=== PATIENT | female | born 1945 ===

== ENCOUNTER 2024-11-01 08:19 | Inpatient (IN) | payer OTHER ==
[2024-10-27 14:28] VITALS: BP 120/68
[~2024-11-01] VITALS: Ht 160 cm; Wt 81.6 kg
[~2024-11-01 08:19] MED LIST: GRALISE600 MG PO; IRBESARTAN-HCT1 EAC1 PO; NORVASC5 MG PO
[2024-11-01] MEDS ORDERED: METRONIDAZOLE/SODIUM CHLORIDE 500 MG/100 ML PIGGYBACK IV ONE (12:45)
[2024-11-01] MEDS ORDERED: CEFTRIAXONE SODIUM 2,000 MG VIAL IV ONE (12:45)
[2024-11-01] MEDS ORDERED: CHLORHEXIDINE GLUCONATE 120 ML BOTTLE TOP ONE (12:45)
[2024-11-01] MEDS ORDERED: BUPIVACAINE HCL 30 ML VIAL IJ ONE (12:45)
[2024-11-01] MEDS ORDERED: LIDOCAINE HCL 1%/EPINEPHRINE 20ML VIAL IJ ONE (12:45)
[2024-11-01] MEDS ORDERED: 0.9 % SODIUM CHLORIDE 1,000 ML IV SCH (14:45)
[2024-11-01] MEDS ORDERED: MORPHINE SULFATE 4 MG/ML CARTRIDGE IV PRN (14:45)
[2024-11-01] MEDS ORDERED: ONDANSETRON HCL 2 MG/ML VIAL IV PRN (14:45)
[2024-11-01] MEDS ORDERED: OxyCODONE HCL 5 MG TABLET (ROXICODONE) PO PRN (14:45)
[2024-11-01] MEDS ORDERED: DEXTROSE 50 % IN WATER 0.5 G/ML DISP.SYRIN IV PRN (14:45)
[2024-11-01] MEDS ORDERED: MORPHINE SULFATE 4 MG/ML VIAL IV ONE ×2 (15:25→15:55)
[2024-11-01 16:17] LABS: HEMATOCRIT 42.3 % (36.0-45.00); HEMOGLOBIN 13.6 g/dL (12.0-15.00); MEAN CELL VOLUME 90.9 fL (80.00-100.00); MEAN CORPUSCULAR HEMOGLOBIN 29.2 pg (27.00-32.0); MEAN CORPUSCULAR HGB CONC 32.1 g/dl (32.0-36.0); PLATELET COUNT 210 K/uL (150-450); RED BLOOD COUNT 4.66 M/uL (4.00-6.00); RED CELL DISTRIBUTION WIDTH 15.5 % (11.5-14.5)
[2024-11-01 16:49] LABS: ALBUMIN 3.4 gm/dL (3.4-5.0); CREATININE SERUM 1.18 mg/dL (0.55-1.02); GFR 44.3; MAGNESIUM 1.7 mg/dL (1.8-2.4); PHOSPHOROUS 3.1 mg/dL (2.5-4.9); POTASSIUM 3.66 mEq/L (3.5-5.1)
[2024-11-01] MEDS ORDERED: HYOSCYAMINE SULFATE 0.125 MG TAB.SUBL SL SCH (17:00)
[2024-11-01] MEDS ORDERED: GABAPENTIN 300 MG CAPSULE PO SCH (17:00)
[2024-11-01] MEDS ORDERED: ACETAMINOPHEN 500 MG GEL..CAP PO SCH (20:00)
[2024-11-01] MEDS ORDERED: FAMOTIDINE/PF 20 MG/2 ML VIAL IV PUSH SCH (21:00)
[2024-11-01] MEDS ORDERED: CELECOXIB 200 MG CAPSULE PO SCH (21:00)
[2024-11-02] VITALS: BP 105/56; O2SAT 85
[2024-11-02 01:46] LABS: ABG PH 7.466 (7.35-7.45); ABG pCO2 38.5 mmHg (35-45); BASE EXCESS 3.4 mmol/l; BICARBONATE 27.2 mmol/l (23-25); SaO2 87.1 %; Tco2 28.4 mmol/l
[2024-11-02 02:08] LABS: ABG PO2 48.7 mmHg (80-100); allen test SATISFACTORY; puncture site RADIAL LEFT
[2024-11-02 02:09] LABS: o2 32 %
[2024-11-02 06:51] LABS: HEMATOCRIT 38.8 % (36.0-45.00); HEMOGLOBIN 13.1 g/dL (12.0-15.00); MEAN CORPUSCULAR HEMOGLOBIN 29.8 pg (27.00-32.0); MEAN CORPUSCULAR HGB CONC 33.8 g/dl (32.0-36.0); PLATELET COUNT 161 K/uL (150-450); RED BLOOD COUNT 4.41 M/uL (4.00-6.00); RED CELL DISTRIBUTION WIDTH 15.5 % (11.5-14.5)
[2024-11-02 07:34] LABS: CALCIUM 8.7 mg/dL (8.5-10.1); CREATININE SERUM 1.07 mg/dL (0.55-1.02); GFR 49.59; MAGNESIUM 1.8 mg/dL (1.8-2.4); PHOSPHOROUS 3.2 mg/dL (2.5-4.9); POTASSIUM 3.7 mEq/L (3.5-5.1)
[2024-11-02 08:00] VITALS: BP 125/77; O2SAT 88
[2024-11-02] MEDS ORDERED: IRBESARTAN 300 MG TABLET PO SCH (09:00)
[2024-11-02] MEDS ORDERED: AMLODIPINE BESYLATE 5 MG TABLET PO SCH (09:00)
[2024-11-02] MEDS ORDERED: LEVALBUTEROL HCL 1.25 MG/3 ML SOLUTION IH SCH (09:04)
[2024-11-02] MEDS ORDERED: FUROsemide 40 MG/4 ML VIAL IV NR (09:30)
[2024-11-02 09:59] LABS: HEMATOCRIT 40.5 % (36.0-45.00); HEMOGLOBIN 13.1 g/dL (12.0-15.00); MEAN CELL VOLUME 89.3 fL (80.00-100.00); MEAN CORPUSCULAR HEMOGLOBIN 28.9 pg (27.00-32.0); MEAN CORPUSCULAR HGB CONC 32.4 g/dl (32.0-36.0); PLATELET COUNT 172 K/uL (150-450); RED BLOOD COUNT 4.54 M/uL (4.00-6.00); RED CELL DISTRIBUTION WIDTH 15.7 % (11.5-14.5)
[2024-11-02] MEDS ORDERED: 0.9 % SODIUM CHLORIDE 1,000 ML IV SCH (10:00)
[2024-11-02 13:04] VITALS: O2SAT 95
[2024-11-02 15:44] VITALS: BP 102/60; O2SAT 94
[2024-11-02] MEDS ORDERED: ENOXAPARIN SODIUM 40 MG/0.4 ML SYRINGE SUBCUTANEO SCH (17:00)
[2024-11-02 20:44] VITALS: O2SAT 93
[2024-11-02] MEDS ORDERED: ENOXAPARIN SODIUM 80 MG/0.8 ML SYRINGE SUBCUTANEO SCH (21:00)
[2024-11-03] VITALS (10 sets, daily range): BP systolic 131–151; BP diastolic 79–98; O2SAT 90–96
[2024-11-03 06:50] LABS: HEMOGLOBIN 12.4 g/dL (12.0-15.00); MEAN CELL VOLUME 88.1 fL (80.00-100.00); MEAN CORPUSCULAR HEMOGLOBIN 29.5 pg (27.00-32.0); MEAN CORPUSCULAR HGB CONC 33.5 g/dl (32.0-36.0); PLATELET COUNT 173 K/uL (150-450); RED CELL DISTRIBUTION WIDTH 15.7 % (11.5-14.5)
[2024-11-03 07:03] LABS: CALCIUM 8.4 mg/dL (8.5-10.1); CREATININE SERUM 1.1 mg/dL (0.55-1.02); GFR 48.04; POTASSIUM 3.24 mEq/L (3.5-5.1)
[2024-11-03] MEDS ORDERED: ENOXAPARIN SODIUM 40 MG/0.4 ML SYRINGE SUBCUTANEO SCH (09:00)
[2024-11-03] MEDS ORDERED: POTASSIUM CHLORIDE IN WATER 100 ML IV NR (12:00)
[2024-11-03] MEDS ORDERED: ENALAPRILAT DIHYDRATE 1.25 MG/ML VIAL IV PRN (16:45)
[2024-11-04] VITALS (8 sets, daily range): BP systolic 138–149; BP diastolic 85–88; O2SAT 90–100
[2024-11-05] VITALS (8 sets, daily range): BP systolic 122–150; BP diastolic 75–83; O2SAT 90–100
[2024-11-05 14:36] LABS: ABG PH 7.425 (7.35-7.45); ABG pCO2 46.4 mmHg (35-45); BASE EXCESS 4.5 mmol/l; BICARBONATE 29.8 mmol/l (23-25); SaO2 90.4 %; Tco2 31.2 mmol/l
[2024-11-05 14:56] LABS: allen test SATISFACTORY; o2 21 %; puncture site RADIAL RIGHT
[2024-11-05] MEDS ORDERED: APIXABAN 5 MG TABLET PO SCH (17:00)
[2024-11-06] VITALS (11 sets, daily range): BP systolic 127–147; BP diastolic 75–83; O2SAT 90–100
[2024-11-06 07:54] LABS: HEMATOCRIT 38.2 % (36.0-45.00); HEMOGLOBIN 12.4 g/dL (12.0-15.00); MEAN CELL VOLUME 89.4 fL (80.00-100.00); MEAN CORPUSCULAR HGB CONC 32.5 g/dl (32.0-36.0); PLATELET COUNT 262 K/uL (150-450); RED BLOOD COUNT 4.27 M/uL (4.00-6.00); RED CELL DISTRIBUTION WIDTH 15.3 % (11.5-14.5)
[2024-11-06 08:22] LABS: ALBUMIN 2.8 gm/dL (3.4-5.0); BILIRUBIN TOTAL 0.55 mg/dL (0.3-1.2); CALCIUM 9.1 mg/dL (8.5-10.1); CREATININE SERUM 0.84 mg/dL (0.55-1.02); GFR 65.57; GLOBULINA 3.9 G/DL (2.4-3.5); POTASSIUM 4.22 mEq/L (3.5-5.1); TOTAL PROTEIN 6.7 gm/dL (6.4-8.2)
[2024-11-07 03:24] VITALS: O2SAT 99
[2024-11-07 07:42] VITALS: BP 165/89; O2SAT 92
[2024-11-07] MEDS ORDERED: MORPHINE SULFATE 4 MG/ML CARTRIDGE IV PRN (09:00)
[2024-11-07] MEDS ORDERED: OxyCODONE HCL 5 MG TABLET (ROXICODONE) PO PRN (09:00)
[2024-11-07 09:26] VITALS: O2SAT 99
[2024-11-07 16:17] VITALS: BP 119/72; O2SAT 97
[2024-11-07 20:05] VITALS: O2SAT 90
[2024-11-08 00:25] VITALS: BP 145/83; O2SAT 98
[2024-11-08 01:00] VITALS: O2SAT 99
[2024-11-08 05:00] VITALS: O2SAT 99
[2024-11-08 08:00] VITALS: BP 158/87; O2SAT 100
[2024-11-08 08:46] VITALS: O2SAT 95
[2024-11-08 11:40] LABS: ABG PH 7.437 (7.35-7.45); ABG PO2 69.6 mmHg (80-100); ABG pCO2 39.6 mmHg (35-45); BASE EXCESS 1.9 mmol/l; BICARBONATE 26.1 mmol/l (23-25); SaO2 94.4 %; Tco2 27.3 mmol/l
[2024-11-08 12:22] LABS: allen test SATISFACTORY; o2 21 %; puncture site RADIAL LEFT
[2024-11-08] MEDS ORDERED: HYOSCYAMINE0.125 M1 SL (13:17)
[2024-11-08] MEDS ORDERED: PEPCID AC20 MG PO (13:17)
[2024-11-08] MEDS ORDERED: TRAM1TAB98 PO (13:17)
[2024-11-08] MEDS ORDERED: INTEGRA F CAPS1 EACH PO (13:18)
[2024-11-08 13:40] VITALS: O2SAT 98
== END 2024-11-08 14:26 | disposition home or self-care (01) | DRG 329 ==
LOC: CIR.AMB 08:19 → O/R 16:44 → SURG 16:44
PROVIDERS: Internal Medicine; ADMIT Surgery; ATTEND Surgery
PROC: 0DTF0ZZ Resection of Right Large Intestine, Open Approach (ICD-10-PCS; principal; 2024-11-02)
PROC: 07BB0ZZ Excision of Mesenteric Lymphatic, Open Approach (ICD-10-PCS; 2024-11-02)
PROC: 0DTU0ZZ Resection of Omentum, Open Approach (ICD-10-PCS; 2024-11-02)
PROC: 4A12X4Z Monitoring of Cardiac Electrical Activity, External Approach (ICD-10-PCS; 2024-11-02)
PROC: BW24YZZ Computerized Tomography (CT Scan) of Chest and Abdomen using Other Contrast (ICD-10-PCS; 2024-11-02)
DX: D37.4 Neoplasm of uncertain behavior of colon (principal); I26.99 Other pulmonary embolism without acute cor pulmonale; K56.609 Unspecified intestinal obstruction, unspecified as to partial versus complete obstruction; N17.9 Acute kidney failure, unspecified; T81.718A Complication of other artery following a procedure, not elsewhere classified, initial encounter; R19.4 Change in bowel habit; N73.6 Female pelvic peritoneal adhesions (postinfective); N99.4 Postprocedural pelvic peritoneal adhesions; R59.0 Localized enlarged lymph nodes; R09.02 Hypoxemia; Z95.0 Presence of cardiac pacemaker; I11.0 Hypertensive heart disease with heart failure; I50.9 Heart failure, unspecified; Z53.31 Laparoscopic surgical procedure converted to open procedure; Y83.8 Other surgical procedures as the cause of abnormal reaction of the patient, or of later complication, without mention of misadventure at the time of the procedure